=== PATIENT | male | born 1985 | race Caucasian/White ===

== ENCOUNTER 2022-12-17 07:54 | Emergency (ER) | payer MEDICAID, OTHER ==
[~2022-12-17] VITALS: Ht 170.2 cm; Wt 70.0 kg
[2022-12-17 12:18] LABS: BASOPHILS % 0.3 % (0.0-2.0); EOSINOPHILS % 0.4 % (0.0-5.0); HEMATOCRIT. 45.9 % (42.0-52.0); HEMOGLOBIN. 15.4 g/dL (14.0-18.0); LYMPHOCYTES % 8.1 % (20.0-50.0); MEAN CORPUSCULAR VOLUME 89.4 fL (80.0-94.0); MEAN PLATELET VOLUME 8.9 fl (7.4-10.4); NEUTROPHILS % 85.2 % (40.0-76.0); PLATELET 230 x1000/uL (130-400); RED BLOOD CELL COUNT 5.13 mill/uL (4.7-6.1); RED CELL DISTRIBUTION WIDTH 14.2 % (11.6-14.6)
[2022-12-17 12:20] LABS: CHLORIDE 103 mEq/L (98-107)
[2022-12-17 12:28] LABS: ETHANOL BLOOD < 10 mg/dL
[2022-12-17 12:37] LABS: CLARITY URINE CLEAR (CLEAR); COLOR URINE YELLOW (YELLOW); KETONES URINE NEGATIVE (NEGATIVE); LEUKOCYTE ESTERASE URINE NEGATIVE (NEGATIVE); NITRITE URINE NEGATIVE (NEGATIVE); OCCULT BLOOD URINE TRACE (NEGATIVE); PH URINE 6.5 (4.5-8.0); PROTEIN URINE 1+ (NEGATIVE); SPECIFIC GRAVITY URINE 1.018 (1.005-1.030)
[2022-12-17 12:57] LABS: *AMPHETAMINES SCREEN URINE PRESUMTIVE POSITIVE (NEGATIVE); *BARBITURATES SCREEN URINE NEGATIVE (NEGATIVE); *BENZODIAZEPINES SCREEN URINE NEGATIVE (NEGATIVE); *COCAINE SCREEN URINE NEGATIVE (NEGATIVE); CANNABINOID URINE SCREEN NEGATIVE (NEGATIVE); METHADONE URINE SCREEN NEGATIVE (NEGATIVE); OPIATES URINE SCREEN NEGATIVE (NEGATIVE); PHENCYCLIDINE URINE SCREEN NEGATIVE (NEGATIVE)
[2022-12-17] MEDS ORDERED: ACETAMINOPHEN 325MG TABLET PO NR ×2 (13:00→16:45)
[2022-12-17] MEDS ORDERED: IBUP-2030 MT (14:24)
[2022-12-18] MEDS: ARIPIPRAZOLE 5MG TABLET PO SCH ×3 (11:15→11:52)
[2022-12-18] MEDS: FLUOXETINE HCL 10 MG CAPSULE PO SCH (11:15)
[2022-12-19] MEDS: FLUOXETINE HCL 10 MG CAPSULE PO SCH (09:48)
[2022-12-19] MEDS ORDERED: ARIPIPRAZOLE 5MG TABLET PO SCH (10:00)
[2022-12-19 13:30] VITALS: BP 129/72
== END 2022-12-19 14:15 | disposition home or self-care (01) ==
LOC: ER 07:54
DX: R45.851 Suicidal ideations (principal); S42.301A Unspecified fracture of shaft of humerus, right arm, initial encounter for closed fracture; R51.9 Headache, unspecified; Z88.8 Allergy status to other drugs, medicaments and biological substances; Z20.822 Contact with and (suspected) exposure to COVID-19; Y04.0XXA Assault by unarmed brawl or fight, initial encounter; Y93.89 Activity, other specified; Y92.89 Other specified places as the place of occurrence of the external cause; Y99.8 Other external cause status
CPT/HCPCS: 36415; 70450; 70486; 73030; 80053; 80305; 80307; 80320; 80329; 81003; 85025; 87426; 99285; C9803; A4565; G0480